=== PATIENT | male | born 1945 | race Caucasian/White ===

== ENCOUNTER 2017-06-03 17:11 | Emergency (ER) | payer OTHER, MEDICARE ==
[2017-06-03 17:18] VITALS: RESP 16
--- NOTE | 2017-06-03 17:51 | EDPHY ---
H & P Stated Complaint: Weakness and diaphoresis while having a BM at 1510. HPI/ROS: CHIEF COMPLAINT: Episode of weakness and diaphoresis while having a bowel movement HISTORY OF PRESENT ILLNESS: The patient is a 71 y/o male with a history of CABGx4 and diabetes arriving with his complaining of weakness and diaphoresis. While sitting on the toilet having a bowel movement, he began to feel diaphoretic and weak. He stood up, continued to feel weak and sweaty afterwards when he walked into the kitchen. These symptoms lasted for about 15 minutes and resolved after he sat down. His says he appeared pale following this episode. He denies associated vision changes, chest pain, shortness of breath, headache, lightheadedness, nausea, vomiting, blood in his stool, fever, recent illness, recent trauma, or other complaints. He continues to feel mildly globally weak and his notes he has not eaten since breakfast today. No anticoagulants. REVIEW OF SYSTEMS: Constitutional: No fever, no chills Eyes: No visual changes ENT: No sore throat Respiratory: No cough, no shortness of breath Cardiac: No chest pain Gastrointestinal: No nausea, no vomiting, no abdominal pain Genitourinary: no dysuria Musculoskeletal: No leg pain or swelling Skin: No rash Neurological: No headache, no numbness Psychiatric: No depression - Personal History Current Tetanus Diphtheria and Acellular Pertussis (TDAP): Yes - Medical/Surgical History PMH: PMH includes: 1. Hypertension 2. Hyperlipidemia 3. Lower back pain 4. Ortho surgery 5. CABG x4 6. Diabetes type 2 Prior medical records reviewed including ED visit 11/17/15 for sore throat. Hx Asthma: No Hx Chronic Respiratory Disease: No Hx Diabetes: Yes Hx Cardiac Disease: Yes Hx Renal Disease: No Hx Cirrhosis: No Hx Alcoholism: No Hx HIV/AIDS: No Hx Splenectomy or Spleen Trauma: No Other PMH: HTN/Hyperlipids/ ortho surg/ lower back pain. Quadruple bypass surgery 2009. DM2. - Social History Smoking Status: Former smoker Additional Social History: at bedside. Lives in [place]. Former smoker. - Physical Exam Exam: General Appearance: Alert, no distress Eyes: Pupils equal and round, no conjunctival pallor or injection ENT, Mouth: Mucous membranes moist Neck: Normal inspection Respiratory: Lungs are clear to auscultation Cardiovascular: Regular rate and rhythm Gastrointestinal: Abdomen is soft and non- tender Neurological: A&O, nonfocal, normal gait Skin: Warm and dry, no rash Extremities: Nontender, no pedal edema Psychiatric: Mood and affect normal Constitutional: Initial Vital Signs Temperature (C) 36.5 C 06/03/17 17:13 Heart Rate 82 06/03/17 17:13 Respiratory Rate 16 06/03/17 17:13 Blood Pressure 139/77 H 06/03/17 17:13 O2 Sat (%) 98 06/03/17 17:13 O2 Delivery Mode Room Air Allergies/Adverse Reactions: No Known Allergies Allergy (Verified 11/17/15 07:26) Home Medications: Medication Instructions Recorded SIMVASTATIN 06/23/09 Metformin HCl 11/17/15 Metoprolol Tartrate 11/17/15 Glipizide 06/03/17 Medical Decision Making - Diagnostics EKG Interpretation: EKG interpreted by me reveals normal sinus rhythm, rate 82, left anterior fascicular block. ED Course/Re-evaluation: This is a 71 y/o male with a history of CABGx4 and diabetes who presents for evaluation of weakness and diaphoresis. His symptoms are most consistent with a vasovagal episode or hypoglycemic episode, though we will evaluate for cardiac etiology as well. IV established. Labs drawn. Patient placed on front desk monitor. The 12 lead EKG was interpreted by myself. Sinus rhythm rate 82 with left anterior fascicular block. See hard copy and/or "tracemaster" electronic copy for interpretation. No evidence of ischemia or dysrhythmia. quality assurance monitor revealed normal sinus rhythm throughout. IV normal saline 500 mL given. Reevaluated patient and discussed work up. Labs are unremarkable. He is asymptomatic and feels better after IV fluids. He was encouraged to drink oral fluids. He will be discharged home in good condition with standard syncope precautions. 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 Whitfield within one week. Differential Diagnosis: Differential diagnosis includes though is not limited to cardiac dysrhythmia, CVA, TIA, GI bleed, sepsis, hypoglycemia. - Data Points Laboratory Results: Laboratory Results 06/03/17 17:45 06/03/17 17:45 Departure - Departure Disposition: Home, Routine, Self-Care Clinical Impression: Vasovagal episode Condition: Good Instructions: Near Syncope (ED) Additional Instructions: Follow up with Dr. Whitfield as planned. Return to the ED for syncope or any concerns. Referrals: Jarad Whitfield MD [Medical Doctor] - As per Instructions Report Scribed for: Antoinette Mccormick Report Scribed by: Susan Garcia Date of Report: 06/03/17 Time of Report: 17:46 Physician Review and Approval Statement: 06/03/17 17:46 Portions of this note were transcribed by a medical office receptionist assistant. I personally performed a history, physical exam, medical decision making, and confirmed accuracy of information the transcribed note.
--- NOTE | 2017-06-03 17:57 | CPEKG ---
Heart Rate: 82 RR Interval: 732 P-R Interval: 172 QRSD Interval: 100 QT Interval: 392 QTC Interval: 458 P [place]: 76 QRS [place]: -46 T Wave [place]: 16 EKG Severity - ABNORMAL ECG - EKG Impression: SINUS RHYTHM EKG Impression: LEFT ANTERIOR FASCICULAR BLOCK Electronically Signed By: Antoinette Mccormick 03-Jun-2017 23:17:23
[2017-06-03 18:03] LABS: % IMMATURE GRANULYOCYTES 0.8 % (0.0-1.1); ADD DIFF? NO; ADD MORPH? NO; ADD SCAN? NO; ATYPICAL LYMPHOCYTE FLAG 0 (0-99); FRAGMENT RBC FLAG 0 (0-99); HEMOGLOBIN 14.1 g/dL (13.7-17.5); LEFT SHIFT FLG 0 (0-99); LIPEMIA HEMOLYSIS FLAG 80 (0-99); MEAN CELL HEMOGLOBIN 29.1 pg (27.9-34.1); MEAN CELL HEMOGLOBIN CONCENTR. 33.6 g/dL (32.4-36.7); MEAN CELL VOLUME 86.8 fL (81.5-99.8); MEAN PLATELET VOLUME 9.3 fL (8.7-11.7); PLATELET CLUMPS FLAG 0 (0-99); PLATELET COUNT 217 10^3/uL (150-400); RED BLOOD CELL COUNT 4.84 10^6/uL (4.40-6.38); RED CELL DISTRIBUTION WIDTH 14.1 % (11.5-15.2)
[2017-06-03 18:25] LABS: ANION GAP 14 mEq/L (8-16); CARBON DIOXIDE 21 mEq/l (22-31); CHLORIDE 103 mEq/L (97-110); GLOMERULAR FILTRATION RATE > 60; GLUCOSE 89 mg/dL (70-100); POTASSIUM 4.7 mEq/L (3.5-5.2); SODIUM 138 mEq/L (134-144)
[2017-06-03 18:37] LABS: TROPONIN I < 0.012 ng/mL (0.000-0.034)
[2017-06-03 19:20] VITALS: BP 145/75; PULSE 75; TEMP 97.9; O2SAT 97
== END 2017-06-03 19:26 | disposition home or self-care (01) ==
DX: R55 Syncope and collapse (principal); I10 Essential (primary) hypertension; E11.9 Type 2 diabetes mellitus without complications; Z79.84 Long term (current) use of oral hypoglycemic drugs; Z87.891 Personal history of nicotine dependence; Z95.1 Presence of aortocoronary bypass graft

== ENCOUNTER → 2017-07-02 | Outpatient (CLI) | payer OTHER, MEDICARE | LOC: BHFA 09:00 | PROVIDERS: ATTEND Internal Medicine Cardiovascular Disease | DX: I10 Essential (primary) hypertension (principal); E78.5 Hyperlipidemia, unspecified | CPT/HCPCS: 78452; 93017; A9500 ==